=== PATIENT | female | born 1945 | race Caucasian/White ===

== ENCOUNTER → 2018-03-05 | Outpatient (CLI) | payer MEDICARE, OTHER ==
[~2018-03-05] MED LIST: ASPI-715 PO; ASPI-757 PO; ATOR20TA22 PO; ATOR40TA24 PO; CETI-176 PO; CHOL200059 PO; CINN1POW MC; CINN500C12 PO; CRAN450C PO; LOSA-165 PO; LOSA-32 PO; LOVAZA1PT GT; LUTE20TA PO; MECL-205 PO; MECL25TA27 PO; MET500 PO; METF-420 PO; POTA20TA94 PO; PRE20 PO; PRO25 PO
--- NOTE | 2018-03-06 10:36 | RADIOLOGY IMAGING REPORT ---
FACILITY: [facility] [place] PATIENT NAME: YOVANNY GANNON : [id number] MR: [id number] V: [id number] EXAM DATE: ORDERING PHYSICIAN: DAVID FERREIRA TECHNOLOGIST: Neelima Fernandez PROCEDURE:BILATERAL DIGITAL SCREENING MAMMOGRAM WITH CAD ASSISTED INTERPRETATION & 3D TOMOSYNTHESIS COMPARISON:Prior mammograms dated 03/02/17, 03/01/16, 02/26/15, 02/18/14, 02/13/13, 02/13/12 INDICATIONS:screening FINDINGS: There is predominant fatty replacement throughout the breasts. The parenchymal pattern has remained stable allowing for difference in mammographic technique & patient positioning. There is no evidence of malignant appearing mass, malignant appearing calcification or other secondary sign of malignancy in either breast. DIAGNOSTIC CATEGORY 1--NEGATIVE. RECOMMENDATIONS: ROUTINE MAMMOGRAM AND CLINICAL EVALUATION. IMPRESSION: BIRADS 1: Negative. No significant abnormality is seen. Dictated by: Shelly Luna M.D. on 03/05/2018 at 17:17 Transcribed by: PIERRE on 03/06/2018 at 8:52 Approved by: Shelly Luna M.D. on 03/06/2018 at 10:35 [facility]
== END ==
LOC: MAMO 02:11
PROVIDERS: ATTEND Physician Assistant
DX: Z12.31 Encounter for screening mammogram for malignant neoplasm of breast (principal)
CPT/HCPCS: 77063; 77067

== ENCOUNTER → 2018-07-31 | Outpatient (REF) | payer MEDICARE, OTHER ==
[~2018-07-31] MED LIST changes: -METF-420 PO; +METF-452 PO
[2018-07-31 10:30] LABS: PLATELET COUNT, AUTOMATED 242 K/uL (150-450)
== END ==
LOC: ZZSENDIN 10:12
PROVIDERS: ATTEND Physician Assistant
DX: D64.9 Anemia, unspecified (principal)
CPT/HCPCS: 85007; 85027; 85045

== ENCOUNTER → 2019-03-06 | Outpatient (CLI) | payer MEDICARE, OTHER ==
--- NOTE | 2019-03-06 16:10 | RADIOLOGY IMAGING REPORT ---
FACILITY: [facility] - [place] PATIENT NAME: YOVANNY GANNON : [id number] MR: [id number] V: [id number] EXAM DATE: ORDERING PHYSICIAN: DAVID FERREIRA TECHNOLOGIST: Neelima Fernandez PROCEDURE:BILATERAL DIGITAL SCREENING MAMMOGRAM WITH CAD ASSISTED INTERPRETATION & 3D TOMOSYNTHESIS COMPARISON:Prior mammograms 03/05/18, 03/02/17, 03/01/16, 02/26/15, 02/18/14, 02/13/13. INDICATIONS:screening FAMILY HISTORY OF BREAST CANCER: Mother in her 40'S BREAST PROCEDURES/TREATMENTS: None. VIEWS OBTAINED: Bilateral 2D & 3D profiled CC & MLO projections. BREAST DENSITY: The breasts are almost entirely fatty. MAMMOGRAPHIC FINDINGS: The parenchymal pattern has remained stable allowing for difference in mammographic technique & patient positioning. DIAGNOSTIC CATEGORY 1--NEGATIVE. RECOMMENDATIONS: ROUTINE MAMMOGRAM AND CLINICAL EVALUATION. IMPRESSION: BIRADS 1: Negative. Dictated by: Shelly Luna M.D. on 03/06/2019 at 10:01 Transcribed by: DEIDRA on 03/06/2019 at 11:14 Approved by: Shelly Luna M.D. on 03/06/2019 at 16:09 [facility]
== END ==
LOC: MAMO 00:55
PROVIDERS: ATTEND Physician Assistant
DX: Z12.31 Encounter for screening mammogram for malignant neoplasm of breast (principal)
CPT/HCPCS: 77063; 77067

== ENCOUNTER → 2019-03-15 | Outpatient (CLI) | payer MEDICARE, OTHER ==
--- NOTE | 2019-03-15 18:41 | RADIOLOGY IMAGING REPORT ---
FACILITY: [facility] PATIENT NAME: Mandy Dave : 1945 MR: [id number] V: [id number] EXAM DATE: ORDERING PHYSICIAN: DAVID FERREIRA TECHNOLOGIST: Location: [facility] [place] Patient: Mandy Dave : 1945 Visit/Account:[id number] Date of Sevice: 03/15/2019 DEXA Scan Clinical history: Screening. Comparison: DEXA scan from 06/16/2016. LUMBAR SPINE: The bone mineral density (BMD) measured from L1-L4 correlates with a Z-score 1.6 and a T-score of 0. 2 which is Normal as defined by the World Health Organization. The corresponding risk of fracture in the lumbar spine is Not increased compared with a young adult reference population. This value has decreased by 0.3 % since the prior study. More than 5% change is considered significant. HIP: Bone mineral density (BMD) measured in the Left femoral neck region correlates with a Z-score 0.8 and a T-score of -0.9 which is Normal as defined by the World Health Organization. The corresponding risk of fracture in the hip is increased 1-2 times compared with a young adult reference population. The total hip value has decreased by 1.4 % since the prior study. More than 5% change is considered significant. Bone mineral density (BMD) measured in the Femoral Neck region measures 0.908 g/cm2. IMPRESSION: 1. Lumbar spine: Normal. There has been No significant change in the bone mineral density since the previous exam. 2. Left Hip: Normal. There has been No significant change in the bone mineral density of the total hip since the previous exam. 3. Femoral Neck: Bone Mineral Density is 0.908 g/cm2 The next DEXA scan of this patient should include the following sites: L1-L4 and the left hip. FRAX? WHO Fracture Risk Assessment Tool link: <http://www.shef.ac.uk/FRAX/tool.jsp?locationValue=9> PLEASE NOTE: 1) The World Health Organization defines low BMD as follows: T-score Normal > -1 Osteopenia < -1 and > -2.5 Osteoporosis < -2.5 without fractures Established osteoporosis < -2.5 with fractures 2) In general, you may wish to consider: Diagnosis Treatment Follow-up DEXA Normal BMD Prevention 2-3 years Osteopenia Prevention/therapy 1-2 years Osteoporosis Therapy Yearly 3) Fracture risk estimated from the T-score is more accurate for vertebral fractures (often spontane ous) than for hip fractures. Report Dictated By: Cam Myles MD at 03/15/2019 6:35 PM Report E-Signed By: Cam Myles MD at 03/15/2019 6:36 PM WSN:[id number]
== END ==
LOC: RAD 02:37
PROVIDERS: ATTEND Physician Assistant
DX: N95.9 Unspecified menopausal and perimenopausal disorder (principal)
CPT/HCPCS: 77080